=== PATIENT | male | born 1955 | race Caucasian/White ===

== ENCOUNTER 2019-04-01 06:30 | Day surgery (SDC) | payer MEDICARE, MEDICAID ==
[~2019-04-01] VITALS: Ht 167.6 cm; Wt 79.1 kg
[2019-04-01] VITALS (17 sets, daily range): BP systolic 103–135; BP diastolic 69–89
[~2019-04-01 06:30] MED LIST: ASPI-611 PO; MULT-1179 PO; OMEG1CAP2 PO; zinc PO
[2019-04-01] MEDS ORDERED: normal saline 1000ml 1,000 ML IV PRN (07:00)
[2019-04-01 07:14] LABS: BASOPHILS # (AUTO) 0.1 X10'3 (0-0.2); BASOPHILS % (AUTO) 0.8 % (0-1); EOSINOPHILS # (AUTO) 0.3 X10'3 (0-0.9); EOSINOPHILS % (AUTO) 4.6 % (0-6); HEMATOCRIT 41.4 % (42.0-52.0); HEMOGLOBIN 14.1 g/dl (14.0-17.9); LYMPHOCYTES # (AUTO) 0.6 X10'3 (1.1-4.8); LYMPHOCYTES % (AUTO) 9.5 % (21-51); MEAN CORPUSCULAR HEMOGLOBIN 31.5 PG (27.0-31.0); MEAN CORPUSCULAR HGB CONC 34.2 g/dL (33.0-36.5); MEAN CORPUSCULAR VOLUME 92.1 FL (78-98); MEAN PLATELET VOLUME 6.2 FL (7.4-10.4); MONOCYTES # (AUTO) 0.9 X10'3 (0-0.9); MONOCYTES % (AUTO) 13.5 % (2-12); NEUTROPHILS # (AUTO) 4.8 X10'3 (1.8-7.7); NEUTROPHILS % (AUTO) 71.6 % (42-75); PLATELET COUNT 267 X10'3 (140-440); RED BLOOD COUNT 4.49 X10'6 (4.70-6.10); RED CELL DISTRIBUTION WIDTH 13.6 % (11.5-14.5); WHITE BLOOD COUNT 6.7 X10'3 (4.5-11.0)
[2019-04-01] MEDS ORDERED: LIT300C PO (07:19)
[2019-04-01] MEDS ORDERED: FLUT1BLS4 INH (07:19)
[2019-04-01] MEDS ORDERED: [UNRECOGNIZED DRUG - OTHER] PO (07:19)
[2019-04-01 07:33] LABS: ALBUMIN 3.2 G/DL (3.4-5.0); ANION GAP 7 (8-16); BLOOD UREA NITROGEN 19 MG/DL (7-18); BUN/CREATININE RATIO 18.1 (5.4-32.0); CALCIUM 8.7 MG/DL (8.5-10.1); CHLORIDE 109 MMOL/L (99-107); CREATININE 1.05 MG/DL (0.60-1.10); GLUCOSE 108 MG/DL (70-104); POTASSIUM 4.1 MMOL/L (3.5-5.1); SODIUM 140 MMOL/L (135-145); TOTAL CARBON DIOXIDE 23.6 MMOL/L (24-32); eGFR 71 ML/MIN
[2019-04-01] MEDS ORDERED: midazolam 2 mg/2 ml injection ONE (08:51)
[2019-04-01] MEDS ORDERED: fentaNYL/PF 50MCG/1 ML 2ML syringe ONE (08:51)
== END 2019-04-01 12:10 | disposition home or self-care (01) ==
LOC: SSTAY O 06:30
PROVIDERS: ATTEND Radiology Diagnostic Radiology
DX: C34.12 Malignant neoplasm of upper lobe, left bronchus or lung (principal); Z79.899 Other long term (current) drug therapy; Z79.01 Long term (current) use of anticoagulants; Z88.5 Allergy status to narcotic agent
CPT/HCPCS: 32405; 36415; 71045; 77012; 80048; 85025; 85610; 88341; 88342; 99152; 99153; J2250; J3010; J7030; 88305